=== PATIENT | male | born 1980 | race Two or more races ===

== ENCOUNTER 2018-10-23 19:08 | Emergency (ER) | payer SELFPAY ==
[~2018-10-23] VITALS: Ht 172.7 cm; Wt 64.0 kg
[2018-10-23 20:10] VITALS: BP 147/78
== END 2018-10-23 23:14 | disposition left against medical advice (07) ==
LOC: ER 19:08
DX: Z53.21 Procedure and treatment not carried out due to patient leaving prior to being seen by health care provider (principal)

== ENCOUNTER 2019-10-30 08:53 | Emergency (ER) | payer MEDICAID ==
[~2019-10-30] VITALS: Ht 175.3 cm; Wt 66.8 kg
[2019-10-30] MEDS ORDERED: SODIUM CHLORIDE 0.9% 1,000 ML IV ONE (10:43)
[2019-10-30] MEDS ORDERED: KETOROLAC 30MG/ML VIAL IV STA (10:43)
[2019-10-30 10:56] LABS: CLARITY URINE CLOUDY (CLEAR); COLOR URINE YELLOW (YELLOW); KETONES URINE 2+ (NEGATIVE); LEUKOCYTE ESTERASE URINE NEGATIVE (NEGATIVE); NITRITE URINE NEGATIVE (NEGATIVE); OCCULT BLOOD URINE NEGATIVE (NEGATIVE); PROTEIN URINE NEGATIVE (NEGATIVE); SPECIFIC GRAVITY URINE 1.028 (1.005-1.030)
[2019-10-30 10:59] LABS: BASOPHILS % 0.4 % (0.0-2.0); EOSINOPHILS % 0.7 % (0.0-5.0); HEMATOCRIT. 40.5 % (42.0-52.0); HEMOGLOBIN. 14.3 g/dL (14.0-18.0); LYMPHOCYTES % 14.8 % (20.0-50.0); MEAN CORPUSCULAR HEMOGLOBIN 31.8 pg (28.0-32.0); MEAN CORPUSCULAR VOLUME 90.2 fL (80.0-94.0); MEAN PLATELET VOLUME 7.4 fl (7.4-10.4); MONOCYTES % 4.5 % (2.0-8.0); NEUTROPHILS % 79.6 % (40.0-76.0); PLATELET 325 x1000/uL (130-400); RED CELL DISTRIBUTION WIDTH 12.5 % (11.6-14.6)
[2019-10-30 11:01] LABS: CHLORIDE 102 mEq/L (98-107)
[2019-10-30 11:05] LABS: ETHANOL BLOOD < 10 mg/dL
[2019-10-30 11:25] LABS: *AMPHETAMINES SCREEN URINE PRESUMTIVE POSITIVE (NEGATIVE); *BARBITURATES SCREEN URINE NEGATIVE (NEGATIVE); *BENZODIAZEPINES SCREEN URINE NEGATIVE (NEGATIVE); *COCAINE SCREEN URINE NEGATIVE (NEGATIVE); CANNABINOID URINE SCREEN PRESUMTIVE POSITIVE (NEGATIVE); METHADONE URINE SCREEN NEGATIVE (NEGATIVE); OPIATES URINE SCREEN PRESUMTIVE POSITIVE (NEGATIVE); PHENCYCLIDINE URINE SCREEN NEGATIVE (NEGATIVE)
[2019-10-30 12:55] VITALS: BP 119/80
== END 2019-10-30 13:57 | disposition home or self-care (01) ==
LOC: ER 08:53
DX: R10.84 Generalized abdominal pain (principal); F11.10 Opioid abuse, uncomplicated; R11.2 Nausea with vomiting, unspecified; F19.10 Other psychoactive substance abuse, uncomplicated; F12.10 Cannabis abuse, uncomplicated; F15.10 Other stimulant abuse, uncomplicated
CPT/HCPCS: 36415; 71045; 74176; 80053; 80305; 80320; 81003; 83690; 85025; 93005; 96361; 96374; 99285; J1885; J7030; G0480

== ENCOUNTER 2019-11-03 10:37 | Emergency (ER) | payer MEDICAID ==
[~2019-11-03] VITALS: Ht 175.3 cm; Wt 67.0 kg
[2019-11-03] MEDS ORDERED: VISCOUS LIDOCAINE 2% 15 ML UDC PO STA (12:30)
[2019-11-03] MEDS ORDERED: DICYCLOMINE 10 MG/5 ML ORAL SYR PO STA (12:30)
[2019-11-03] MEDS ORDERED: ONDANSETRON 4MG ODT PO STA (12:30)
[2019-11-03] MEDS ORDERED: MAGNESIUM/ALUMINUM HYDROXIDE/SIMETHICONE 30ML UDC PO STA ×2 (12:30)
[2019-11-03 12:58] LABS: CHLORIDE 105 mEq/L (98-107)
[2019-11-03 13:00] LABS: BASOPHILS % 0.5 % (0.0-2.0); EOSINOPHILS % 0.1 % (0.0-5.0); HEMATOCRIT. 38.1 % (42.0-52.0); HEMOGLOBIN. 13.5 g/dL (14.0-18.0); LYMPHOCYTES % 12.5 % (20.0-50.0); MEAN CORPUSCULAR HEMOGLOBIN 31.8 pg (28.0-32.0); MEAN CORPUSCULAR VOLUME 89.9 fL (80.0-94.0); MEAN PLATELET VOLUME 7.3 fl (7.4-10.4); MONOCYTES % 4.4 % (2.0-8.0); NEUTROPHILS % 82.5 % (40.0-76.0); PLATELET 345 x1000/uL (130-400); RED BLOOD CELL COUNT 4.24 mill/uL (4.7-6.1); RED CELL DISTRIBUTION WIDTH 12.5 % (11.6-14.6)
[2019-11-03 13:02] LABS: INR 1.1; PROTHROMBIN TIME 11.3 sec (9.6-11.0)
[2019-11-03 13:03] LABS: ETHANOL BLOOD < 10 mg/dL
[2019-11-03 13:14] LABS: CLARITY URINE CLEAR (CLEAR); COLOR URINE YELLOW (YELLOW); KETONES URINE 3+ (NEGATIVE); LEUKOCYTE ESTERASE URINE NEGATIVE (NEGATIVE); NITRITE URINE NEGATIVE (NEGATIVE); OCCULT BLOOD URINE NEGATIVE (NEGATIVE); PH URINE 7.5 (4.5-8.0); PROTEIN URINE NEGATIVE (NEGATIVE); SPECIFIC GRAVITY URINE 1.017 (1.005-1.030)
[2019-11-03 13:35] LABS: *BARBITURATES SCREEN URINE NEGATIVE (NEGATIVE); *BENZODIAZEPINES SCREEN URINE NEGATIVE (NEGATIVE); *COCAINE SCREEN URINE NEGATIVE (NEGATIVE)
[2019-11-03 13:36] LABS: *AMPHETAMINES SCREEN URINE PRESUMTIVE POSITIVE (NEGATIVE); CANNABINOID URINE SCREEN NEGATIVE (NEGATIVE); METHADONE URINE SCREEN NEGATIVE (NEGATIVE); OPIATES URINE SCREEN PRESUMTIVE POSITIVE (NEGATIVE); PHENCYCLIDINE URINE SCREEN NEGATIVE (NEGATIVE)
[2019-11-03 14:30] VITALS: BP 104/63
== END 2019-11-03 14:38 | disposition home or self-care (01) ==
LOC: ER 10:37
DX: K29.70 Gastritis, unspecified, without bleeding (principal); F15.10 Other stimulant abuse, uncomplicated; F19.10 Other psychoactive substance abuse, uncomplicated
CPT/HCPCS: 36415; 80053; 80305; 80320; 81003; 83690; 85025; 85610; 93005; 99285; Q0162; G0480

== ENCOUNTER 2022-05-14 19:28 | Emergency (ER) | payer MEDICAID ==
[~2022-05-14] VITALS: Ht 172.7 cm; Wt 52.0 kg
[~2022-05-14 19:28] MED LIST: OMEP40CA20 MT
[2022-05-14 19:33] VITALS: BP 99/52
[2022-05-15 03:18] LABS: BASOPHILS % 0.7 % (0.0-2.0); EOSINOPHILS % 0.5 % (0.0-5.0); HEMATOCRIT. 26.9 % (42.0-52.0); HEMOGLOBIN. 8.8 g/dL (14.0-18.0); LYMPHOCYTES % 18.4 % (20.0-50.0); MEAN CORPUSCULAR HEMOGLOBIN 26.5 pg (28.0-32.0); MEAN CORPUSCULAR VOLUME 80.7 fL (80.0-94.0); MEAN PLATELET VOLUME 7.8 fl (7.4-10.4); MONOCYTES % 9.3 % (2.0-8.0); NEUTROPHILS % 71.1 % (40.0-76.0); PLATELET 284 x1000/uL (130-400); RED BLOOD CELL COUNT 3.33 mill/uL (4.7-6.1); RED CELL DISTRIBUTION WIDTH 18.1 % (11.6-14.6)
[2022-05-15 03:23] LABS: CHLORIDE 107 mEq/L (98-107)
[2022-05-15 03:29] LABS: ETHANOL BLOOD < 10 mg/dL
[2022-05-15] MEDS ORDERED: SODIUM CHLORIDE 0.9% 1,000 ML IV ONE (04:30)
== END 2022-05-15 06:40 | disposition admitted as inpatient to this hospital (09) ==
LOC: ER 19:28 → ENRESERV 05-15 09:51
DX: D64.9 Anemia, unspecified (principal); R53.1 Weakness; F15.10 Other stimulant abuse, uncomplicated
CPT/HCPCS: 36415; 80053; 80320; 83690; 85025; 86850; 86900; 86901; 93005; 99284; J7030; G0480